=== PATIENT | male | born 1980 | race African-American/Black ===

== ENCOUNTER → 2022-11-19 | Emergency (ER) | payer BC, SELFPAY ==
[~2022-11-19] MED LIST: Acetaminophen 325 MG TAB PO PRN; Amlodipine 10 MG TAB PO SCH; Aspirin Chewable 81 MG TAB ONE; Aspirin Chewable 81 MG TAB PO SCH; Calcium Carbonate 500 MG ChewTAB PO PRN; Enoxaparin 120 MG/0.8 ML SYRINGE SC SCH; Ipratropium/Albuterol 3 ML NEB NEB PRN; Ipratropium/Albuterol 3 ML NEB ONE; Metoprolol Tartrate 25 MG TAB PO SCH; Mometasone/Formoterol 60 PUFF AER INH SCH; Nitroglycerin 2% Ointment 1 INCH/1 GM Packet ONE; Nitroglycerin 2% Ointment 1 INCH/1 GM Packet TOP SCH; Ondansetron ODT 4 MG TAB PO PRN; Ondansetron PF 4 MG/2 ML Vial IVP PRN; Senokot S 8.6-50 MG TAB PO PRN; hydrALAZINE 20 MG/ML VIAL SLOW IVP PRN; methylPREDNISolone Sod Succ/PF 125 MG/2 ML VIAL IVP SCH; predniSONE 20 MG TAB ONE; predniSONE 50 MG TAB PO SCH
[2022-11-19 08:42] LABS: #Basophils 0.1 10x3/uL (0.0-0.2); #Eosinphils 0.5 10x3/uL (0.0-0.5); #Monocytes 0.7 10x3/uL (0.0-1.1); #Neutrophils 9.1 10x3/uL (1.5-8.4); %Basophils 0.8 % (0.0-2.0); %Eosinophils 3.9 % (0.0-6.0); %Lymphocytes 16.3 % (18.0-47.0); %Monocytes 5.5 % (0.0-10.0); %Neutrophils 73.1 % (40.0-75.0); Hemoglobin 9.5 g/dL (13.5-17.5); Mean Corpuscular Hemoglobin 22.9 pg (27.0-33.0); Mean Corpuscular Volume 76.6 fl (81.2-95.1); Platelet Count 420 10x3/uL (150-450); RBC Distribution Width 15.9 % (11.5-14.5); Red Blood Cell (RBC) Count 4.14 10x6/uL (4.32-5.72); White Blood Cell (WBC) Count 12.4 10x3/uL (3.5-10.5)
[2022-11-19 09:09] LABS: Anion Gap 13 mmol/L (10-20); BUN (Urea Nitrogen) 19 mg/dL (8.9-20.6); Calc. Creatinine Clearance 0 mL/min (70-130); Calcium 8.3 mg/dL (7.8-10.44); Carbon Dioxide 25 mmol/L (22-29); Chloride 103 mmol/L (98-107); Estimated GFR 57; Glucose 129 mg/dL (70-105); Potassium 3.6 mmol/L (3.5-5.1); Sodium 137 mmol/L (136-145)
[2022-11-19 11:02] LABS: CKMB 4.5 ng/mL (0-6.6)
[2022-11-19 12:12] LABS: Troponin I 0.096 ng/mL (< 0.028)
== END | disposition home or self-care (01) ==
LOC: CSHERS 07:47 → SUATTDRO 07:47
PROVIDERS: ADMIT Internal Medicine; ATTEND Internal Medicine
DX: I21.4 Non-ST elevation (NSTEMI) myocardial infarction (principal); R06.02 Shortness of breath; D72.829 Elevated white blood cell count, unspecified
CPT/HCPCS: 71045; 80048; 82553; 84484; 85025; 93005; 94640; 96372; J1650; J7512; J7620